=== PATIENT | male | born 1965 | race African-American/Black ===

== ENCOUNTER 2017-05-30 00:37 | Emergency (ER) | payer MEDICARE, OTHER ==
[~2017-05-30] VITALS: Ht 185.4 cm; Wt 88.5 kg
[~2017-05-30 00:37] MED LIST: BACTRIM 400-801 TA1; BENZONATATE; LEVAQUIN PO; LORTAB PO
[2017-05-30 01:35] LABS: MICRO INDICATED? YES; URINE APPEARANCE CLEAR; URINE BILIRUBIN NEG (NEG); URINE BLOOD NEG (NEG); URINE COLOR YELLOW; URINE GLUCOSE NEG (NORM); URINE KETONE NEG (NEG); URINE LEUKOCYTE ESTERASE 1+ (NEG); URINE NITRATE POS (NEG); URINE PROTEIN NEG (NEG); URINE RBC 0-2 /[HPF] (0-2); URINE SOURCE CLEAN CATCH; URINE SPECIFIC GRAVITY >=1.030 (1.003-1.035)
[2017-05-30 01:36] LABS: CULTURE INDICATED? YES; URINE BACTERIA 3+ (NEG); URINE MUCUS PRESENT; URINE SQUAMOUS EPITHELIAL CELL FEW /[HPF]; URINE WBC 25-50 /[HPF] (0-5)
== END 2017-05-30 02:03 | disposition home or self-care (01) ==
LOC: SED 00:37
PROVIDERS: Emergency Medicine
DX: N39.0 Urinary tract infection, site not specified (principal); Z79.891 Long term (current) use of opiate analgesic
CPT/HCPCS: 81003; 87086; 87088; 87186; 99283